=== PATIENT | female | born 1980 | race Caucasian/White ===

== ENCOUNTER 2025-01-27 00:31 | Emergency (ER) | payer MEDICAID ==
[~2025-01-27] VITALS: Ht 157.5 cm; Wt 67.0 kg
[2025-01-27 00:38] VITALS: O2SAT 100
[2025-01-27 00:58] LABS: BASOPHILS % 0.5 % (0.0-2.0); EOSINOPHILS % 3.4 % (0.0-5.0); HEMATOCRIT. 37.4 % (36.0-48.0); HEMOGLOBIN. 12.7 g/dL (12.0-16.0); LYMPHOCYTES % 39.0 % (20.0-50.0); MEAN PLATELET VOLUME 8.1 fl (7.4-10.4); MONOCYTES % 8.3 % (2.0-8.0); NEUTROPHILS % 48.8 % (40.0-76.0); PLATELET 275 x1000/uL (130-400); RED BLOOD CELL COUNT 4.32 mill/uL (4.2-5.4); RED CELL DISTRIBUTION WIDTH 14.1 % (11.6-14.6)
[2025-01-27 01:19] LABS: CREATININE 0.8 mg/dL (0.6-1.0); UREA NITROGEN BLOOD 7 mg/dL (9-23)
[2025-01-27] MEDS: ACETAMINOPHEN 500MG TABLET PO ONE (01:47)
[2025-01-27] MEDS: DIPHENHYDRAMINE 25MG CAPSULE PO ONE (01:48)
[2025-01-27] MEDS: METOCLOPRAMIDE HCL 10MG TABLET PO ONE (01:48)
[2025-01-27 02:09] LABS: TROPONIN I HIGH SENSITIVITY < 4 ng/L (3.0-34)
[2025-01-27 03:51] VITALS: BP 102/52; PULSE 58; RESP 18; TEMP 36.8; O2SAT 100
== END 2025-01-27 03:51 | disposition home or self-care (01) ==
LOC: ER 00:31
DX: R51.9 Headache, unspecified (principal); F10.90 Alcohol use, unspecified, uncomplicated; Y90.9 Presence of alcohol in blood, level not specified
CPT/HCPCS: 99285; 71045; 80048; 85025; 84484; 36415; 93005; Q0163; J8597